=== PATIENT | male | born 1965 | race Asian ===

== ENCOUNTER 2019-04-14 21:14 | Emergency (ER) | payer OTHER ==
[~2019-04-14] VITALS: Ht 165.1 cm; Wt 81.6 kg
[2019-04-14 21:25] VITALS: BP 148/85
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
[2019-04-14] MEDS ORDERED: NAPROXEN250 MG ORAL (21:41)
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
[2019-04-14] MEDS ORDERED: Acetaminophen 500mg (ES) tab ORAL ONE (21:45)
[2019-04-14 21:51] VITALS: BP 148/85
--- NOTE | 2019-04-14 21:51 | NUR ---
ED Nurse Note: Pt cleared by ERMD for discharge. DC instructions/prescription was given and explained to pt and verbalized understanding of teachings. All medical deviecs such as ID band removed. Pt is AAO x4, ambulatory and left with all personal belongings.
== END 2019-04-14 21:51 | disposition home or self-care (01) ==
LOC: EMR 21:46
DX: S20.229A Contusion of unspecified back wall of thorax, initial encounter (principal); I10 Essential (primary) hypertension; V43.52XA Car driver injured in collision with other type car in traffic accident, initial encounter; Y92.410 Unspecified street and highway as the place of occurrence of the external cause
CPT/HCPCS: 99282